=== PATIENT | female | born 1995 | race Two or more races ===

== ENCOUNTER 2017-10-22 20:07 | Emergency (ER) | payer MEDICAID ==
[~2017-10-22] VITALS: Ht 162.6 cm; Wt 68.0 kg
[2017-10-22] MEDS ORDERED: IBUPROFEN 600 MG TAB PO ONE ×2 (20:48→21:00)
[2017-10-22 20:50] LABS: Urine Bacteria NONE SEEN /hpf (None Seen); Urine Blood Negative /uL (Negative); Urine Specific Gravity 1.015 (1.001-1.035); Urine WBC 33 /hpf (0 - 5)
[2017-10-22 21:12] VITALS: BP 124/78
[2017-10-22] MEDS ORDERED: cefTRIAXone SOD 1,000 MG VL IM ONE (21:15)
[2017-10-22] MEDS ORDERED: cefTRIAXone W LIDOCAINE 1 GM IM IM ONE (21:15)
[2017-10-22] MEDS ORDERED: cefTRIAXone SOD 1,000 MG VL ONE (21:16)
[2017-10-22] MEDS ORDERED: LIDOCAINE 1% (LOCAL ANESTH.) PF 5ml SDV ONE (21:16)
== END 2017-10-22 21:30 | disposition home or self-care (01) ==
LOC: ER 20:07
DX: J03.90 Acute tonsillitis, unspecified (principal); J45.909 Unspecified asthma, uncomplicated
CPT/HCPCS: 81001; 96372; 99284; J0696